=== PATIENT | male | born 1965 | race Caucasian/White ===

== ENCOUNTER 2016-06-22 20:38 | Emergency (ER) | payer MEDICARE, OTHER | END 2016-06-22 21:54 | disposition home or self-care (01) | LOC: FER 20:38 | DX: S83.91XA Sprain of unspecified site of right knee, initial encounter (principal); E11.9 Type 2 diabetes mellitus without complications; Z88.0 Allergy status to penicillin; Z98.890 Other specified postprocedural states | CPT/HCPCS: J1885 ==

== ENCOUNTER → 2016-09-21 | Day surgery (SDC) | payer MEDICARE, OTHER ==
[~2016-09-21] VITALS: Ht 177.8 cm; Wt 92.2 kg
[2016-09-21 08:40] LABS: CREATININE 0.9 mg/dL (0.7-1.2); POTASSIUM 3.9 mmol/L (3.5-5.1)
== END | disposition home or self-care (01) ==
LOC: FAS 07:26
PROVIDERS: Anesthesiology
DX: Z12.11 Encounter for screening for malignant neoplasm of colon (principal); E78.00 Pure hypercholesterolemia, unspecified; E11.9 Type 2 diabetes mellitus without complications; M19.90 Unspecified osteoarthritis, unspecified site; I10 Essential (primary) hypertension; Z79.82 Long term (current) use of aspirin; Z88.0 Allergy status to penicillin; Z79.899 Other long term (current) drug therapy; Z98.890 Other specified postprocedural states
CPT/HCPCS: 36415; 80048; J2704

== ENCOUNTER 2021-02-22 09:00 | Emergency (ER) | payer MEDICARE, OTHER ==
[~2021-02-22 09:00] MED LIST: AMARYL2 MG PO; BENTYL10 MG PO; BUSPIRONE HCL10 MG PO; DULOXETINE HCL30 MG PO; IBUPROFEN800 MG PO; LEVAQUIN750 MG PO; LISINOPRIL 10MG10 MG PO; LOVASTATIN40 MG PO; LUMIGAN5 ML OU; METFORMIN HCL500 M1 PO; VENTOLIN HFA IN18 GM INH
== END 2021-02-22 09:34 | disposition home or self-care (01) ==
LOC: FER 09:00
DX: S50.11XA Contusion of right forearm, initial encounter (principal); E11.638 Type 2 diabetes mellitus with other oral complications; Z88.0 Allergy status to penicillin; W19.XXXA Unspecified fall, initial encounter; Y92.009 Unspecified place in unspecified non-institutional (private) residence as the place of occurrence of the external cause
CPT/HCPCS: 73090

== ENCOUNTER 2021-04-13 10:45 | Emergency (ER) | payer MEDICARE, OTHER | END 2021-04-13 12:45 | disposition home or self-care (01) | LOC: FER 10:45 | DX: S50.11XA Contusion of right forearm, initial encounter (principal); E11.22 Type 2 diabetes mellitus with diabetic chronic kidney disease; N18.9 Chronic kidney disease, unspecified; Z88.0 Allergy status to penicillin; W19.XXXA Unspecified fall, initial encounter; Y92.009 Unspecified place in unspecified non-institutional (private) residence as the place of occurrence of the external cause | CPT/HCPCS: 73080; 73090 ==